=== PATIENT | female | born 1970 | race Caucasian/White ===

== ENCOUNTER 2023-12-06 17:22 | Emergency (ER) | payer SELFPAY ==
[~2023-12-06] VITALS: Ht 167.6 cm; Wt 81.7 kg
[2023-12-06] MEDS ORDERED: FentaNYL Citrate 50 MCG/ML 2 ML Injection IV ONE (17:35)
[2023-12-06] MEDS ORDERED: Ondansetron HCl 2 MG / ML 2ML Vial IV ONE (17:35)
[2023-12-06] MEDS ORDERED: HYDROmorphone HCl/Pf 1MG SYR IV ONE (18:35)
[2023-12-06] MEDS ORDERED: Percocet 5-3251 EACH PO (19:10)
[2023-12-06] MEDS ORDERED: RX Prepack 6 Tabs Oxycodone 5mg UD ONE (19:15)
[2023-12-06 19:30] VITALS: BP 160/100
== END 2023-12-06 19:56 | disposition home or self-care (01) ==
LOC: ER 17:22
DX: S82.841A Displaced bimalleolar fracture of right lower leg, initial encounter for closed fracture (principal); W18.49XA Other slipping, tripping and stumbling without falling, initial encounter; Z88.5 Allergy status to narcotic agent; Z88.8 Allergy status to other drugs, medicaments and biological substances
CPT/HCPCS: 29515; 73610; 96374-59; 96375-59; 99283-25; A9270; J1170; J2405; J3010

== ENCOUNTER 2023-12-14 06:11 | Day surgery (SDC) | payer OTHER ==
[~2023-12-14] VITALS: Ht 162.6 cm; Wt 89.1 kg
[~2023-12-14 06:11] MED LIST: Percocet 5-3251 EACH PO
[2023-12-14] MEDS ORDERED: CeFAZolin Sodium 2,000 MG VIAL ONE (06:31)
[2023-12-14] MEDS ORDERED: Lactated Ringer's 1,000 ML IV ONE ×3 (06:32→08:29)
[2023-12-14] MEDS ORDERED: NS 50 ML IV ONE (06:32)
[2023-12-14] MEDS ORDERED: OMEP20ER PO (06:39)
[2023-12-14] MEDS ORDERED: VITAMIN D3 (06:40)
[2023-12-14] MEDS ORDERED: SUPER C (06:41)
[2023-12-14] MEDS ORDERED: STOOL SOFT (06:41)
[2023-12-14] MEDS ORDERED: propofoL 60 ML IV ONE (06:52)
[2023-12-14] MEDS ORDERED: FentaNYL Citrate 50 MCG/ML 2 ML Injection ONE (06:52)
[2023-12-14] MEDS ORDERED: Midazolam HCl 1MG / ML 2ML Vial ONE (06:53)
[2023-12-14] MEDS ORDERED: Scopolamine Hydrobromide Patch ONE (07:06)
--- NOTE | 2023-12-14 07:45 | NUR ---
12/14/23 0745 Christina Zacarias 0723 TIME OUT TAKEN TO VERFIY CORRECT PT, PROCEDURE, LOCATION AND ALLERGIES. PT ELECTED TO PROCEED WITH POPLITEAL BLOCK. MEDICATED PRIOR WITH 2MG VERSED, 50MCGS OF FENTANYL BY THIS RN. VS STABLE THROUGHOUT, PT TOLERATED WELL. BLOCK START AT 0725 BLOCK AND AT 0738.
[2023-12-14] MEDS ORDERED: Bupivacaine 0.5% HCl 5 MG/ML 30MLVIAL INJ ONE ×2 (08:04)
--- NOTE | 2023-12-14 08:10 | NUR ---
12/14/23 0810 Nissa Jones 0.15ML OF EPI (1MG/ML) ADDED TO 0.5% BUPIVACAINE (150MG/30ML) TO MAKE BUPIVACAINE 0.5% WITH EPI 1:200,000 ON FIELD.
[2023-12-14] MEDS ORDERED: Glycopyrrolate 0.2 MG/ML 5ML VIAL ONE (08:11)
[2023-12-14] MEDS ORDERED: HYDROmorphone HCl/Pf 1MG SYR ONE (08:25)
[2023-12-14] MEDS ORDERED: EPINEPhrine HCl 1 MG/ML 1ML Amp XX ONE (08:52)
[2023-12-14 09:42] VITALS: BP 141/96
--- NOTE | 2023-12-14 10:48 | NUR ---
12/14/23 1048 Sancho Bravo PT INITIALLY SHAKY IN SDU. SHAKING HAS RESOLVED. PT VOIDED PRIOR TO D/C.
== END 2023-12-14 11:20 | disposition home or self-care (01) ==
LOC: ORSCSDS 06:11
PROVIDERS: Podiatrist Foot & Ankle Surgery
PROC: 0QHJ04Z Insertion of Internal Fixation Device into Right Fibula, Open Approach (ICD-10-PCS; principal; 2023-12-14 07:30)
PROC: 0QSJ04Z Reposition Right Fibula with Internal Fixation Device, Open Approach (ICD-10-PCS; principal; 2023-12-14 07:30)
DX: S82.61XA Displaced fracture of lateral malleolus of right fibula, initial encounter for closed fracture (principal); K21.9 Gastro-esophageal reflux disease without esophagitis; E66.9 Obesity, unspecified; Z68.33 Body mass index [BMI] 33.0-33.9, adult; Z79.899 Other long term (current) drug therapy
CPT/HCPCS: A9270; C1713; C1769; C1776; J0171; J0690; J1170; J2250; J2704; J3010; J7120